=== PATIENT | male | born 1995 | race Caucasian/White ===

== ENCOUNTER 2019-07-20 13:57 | Emergency (ER) | payer OTHER ==
[2019-07-20 14:02] VITALS: BP 130/85; PULSE 83; TEMP 98.7; BMI 39.5
[2019-07-20] MEDS ORDERED: IBUPROFEN 600 MG TABLET (FP) PO ONE ×2 (14:19→14:37)
--- NOTE | 2019-07-20 15:03 | PDOC ---
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 Patient says he slipped on water, his R elbow hit a table and he fell onto an outstretched hand. He says he has pain in the R elbow and palmar side of the wrist, a/w some numbness to flexor side and elbow and forearm. Denies hitting his head or LOC. - Physicial Exam PE: 07/20/19 15:03 physical exam General: NAD, well appearing Vascular: 2+ DP pulses symmetric and equal. MSK: shoulder abduction/adduction/flexion/extension and prox strength 5/5 actively against resistance. 5/5 shoulder shrug strength. deltoid sensation intact; sensation grossly intact in median/radial/ulnar distribution. 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 2+ radialis pulses bilaterally and symmetric. soft compartments. FROM at elbow and wrist. no scaphoid tenderness noted, FROM at wrist. Neuro: alert, no focal neurologic deficits Skin: color normal color, warm and well perfused. Cap refill <2 sec. 07/20/19 15:59 - Medical Decision Making 07/20/19 15:02 X-ray of left elbow with normal alignment, no acute fracture, no fat pad seen anteriorly or posteriorly, no fracture of the forearm is noted, no dislocation wrist bones also appear intact. Patient has no scaphoid tenderness so unlikely occult fracture there. Most of his pain is isolated in the forearm and more proximally adjacent to the elbow. Patient is given analgesia here, provide supportive care, analgesia and orthopedics follow-up.
--- NOTE | 2019-07-20 15:28 | PDOC ---
History of Present Illness - General Chief Complaint: Injury Stated Complaint: LEF TARM PAIN S/P FALL YESTERDAY AT WORK Time Seen by Provider: 07/20/19 14:05 History Source: Patient Exam Limitations: No Limitations - History of Present Illness Initial Comments: 07/20/19 15:26 23y M with no significant PMH presenting to ED with complaints of R wrist and elbow pain after a fall at work. Patient says he slipped on water, his R elbow hit a table and he fell onto an outstretched hand. He says he has pain in the R elbow and palmar side of the wrist. Denies hitting his head or LOC. Denies headache, neck pain, shoulder pain, hip pain, knee pain. Endorses numbness sensation on the flexor side of the forearm. Past History - Past Medical History Allergies/Adverse Reactions: Allergies Allergy/AdvReac Type Severity Reaction Status Date / Time No Known Allergies Allergy Verified 07/20/19 13:58 Home Medications: Ambulatory Orders NK [No Known Home Medication] 07/20/19 COPD: No Other medical history: pt denies - Psycho Social/Smoking Cessation Hx Smoking History: Never smoked Hx Alcohol Use: No Drug/Substance Use Hx: No Substance Use Type: None Review of Systems - Review of Systems Constitutional: No: Symptoms Reported HEENTM: No: Symptoms Reported Respiratory: No: Symptoms reported Cardiac (ROS): No: Symptoms Reported ABD/GI: No: Symptoms Reported : No: Symptoms Reported Musculoskeletal: Yes: See HPI Integumentary: No: Symptoms Reported Neurological: No: Symptoms reported *Physical Exam - Vital Signs Last Vital Signs Temp Pulse Resp BP Pulse Ox 98.7 F 83 18 130/85 98 07/20/19 13:58 07/20/19 13:58 07/20/19 13:58 07/20/19 13:58 07/20/19 13:58 - Physical Exam General Appearance: Yes: Appropriately Dressed, Obese. No: Apparent Distress HEENT: positive: EOMI, ACOSTA Respiratory/Chest: positive: Lungs Clear, Normal Breath Sounds Cardiovascular: positive: Regular Rhythm, Regular Rate, S1, S2. negative: Edema , JVD, Murmur Comments:: 07/20/19 16:05 radial pulses 2+ Musculoskeletal: positive: Other (no bony tenderness, no decreased ROM. sensation intact.). negative: Decreased Range of Motion, Vertebral Tenderness Integumentary: positive: Normal Color, Dry, Warm. 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, Fully Oriented, Alert, Normal Mood/ Affect, Normal Response, Motor Strength 01/22 ED Treatment Course - RADIOLOGY Radiology Studies Ordered: Category Date Time Status ELBOW-LEFT [RAD] Stat Radiology 07/20/19 14:20 Taken FOREARM- LEFT [RAD] Stat Radiology 07/20/19 14:20 Completed WRIST-LEFT [RAD] Stat Radiology 07/20/19 14:20 Taken - Medications Given in the ED: ED Medications Discontinued Medications Generic Name Dose Route Start Last Admin Trade Name Freq PRN Reason Stop Dose Admin Ibuprofen 600 mg 07/20/19 14:19 07/20/19 14:39 Motrin - PO 07/20/19 14:20 600 mg ONCE ONE Administration Medical Decision Making - Medical Decision Making 07/20/19 16:05 23y m presenting to ED for L arm injury after FOOSH. ddx includes but not limited to fracture, dislocation, ligamentous injury low suspicion for dislocation, vascular injury, nerve injury. sensation intact, full ROM. will give ibuprofen 600mg. xray of elbow, forearm and wrist. xrays negative for fracture. pt states pain is better. safe for dc home. given ortho referral. dispo: home Discharge - Discharge Information Problems reviewed: Yes Clinical Impression/Diagnosis: Arm pain Qualifiers: Laterality: left Qualified Code(s): M79.602 - Pain in left arm Condition: Improved Disposition: HOME - Admission No - Follow up/Referral Referrals: Adarsh Resendiz MD [Staff Physician] - - Patient Discharge Instructions Additional Instructions: You were seen in the emergency room today for pain the forearm, elbow and wrist after a fall. There is no fracture. You may have swelling for the next day or two. I recommend ice packs for the swelling. You can take Tylenol or ibuprofen/ Advil for the pain as needed. I recommend following up with an orthopedist. Information is provided below. Come back to the emergency room for worsening pain, numbness, inability to move wrist or fingers or if any new or concerning symptom develops. Thank you - Post Discharge Activity Work/Back to School Note: Back to Work
== END 2019-07-20 16:06 | disposition home or self-care (01) ==
LOC: FER 13:57
DX: M79.602 Pain in left arm (principal); W01.0XXA Fall on same level from slipping, tripping and stumbling without subsequent striking against object, initial encounter; Y93.89 Activity, other specified; Y92.89 Other specified places as the place of occurrence of the external cause; Y99.0 Civilian activity done for income or pay
CPT/HCPCS: 73070-TC-LT-FY; 73090-TC-LT-FY; 73110-TC-LT-FY; 99282-25